=== PATIENT | female | born 1990 | race Caucasian/White ===

== ENCOUNTER 2017-04-27 06:16 | Emergency (ER) | payer OTHER ==
[~2017-04-27] VITALS: Ht 152.4 cm; Wt 69.8 kg
[~2017-04-27 06:16] MED LIST: BUTASPCAFT; CYCL10 PO; Esgic Tablet1 EACH; LORA2 PO
[2017-04-27 06:59] LABS: Source, Urine Clean Catch
[2017-04-27 07:03] LABS: Bilirubin, Urine Neg (Neg); Blood, Urine Neg (Neg); Glucose Qualitative, Urine Neg (Neg); Ketones, Urine Neg (Neg); Leukocyte Esterase, Urine Neg (Neg); Nitrite, Urine Neg (Neg); Protein, Urine Neg (Neg); Urobilinogen, Urine 1+ (Normal)
[2017-04-27 07:07] LABS: Appearance, Urine Clear (Clear); Color, Urine Yellow (P-Yellow)
[2017-04-27 07:50] LABS: Influenza A Negative (NEGATIVE); Influenza B Negative (NEGATIVE)
[2017-04-27] MEDS ORDERED: ALBU90OI INH (08:08)
== END 2017-04-27 08:23 | disposition home or self-care (01) ==
LOC: ER 06:16
PROVIDERS: Emergency Medicine
DX: J40 Bronchitis, not specified as acute or chronic (principal); F17.210 Nicotine dependence, cigarettes, uncomplicated; Z87.442 Personal history of urinary calculi
CPT/HCPCS: 71046; 81003; 81025; 87804; 99283; J1100

== ENCOUNTER 2017-05-24 19:46 | Emergency (ER) | payer OTHER ==
[~2017-05-24] VITALS: Ht 152.4 cm; Wt 69.0 kg
[~2017-05-24 19:46] MED LIST changes: +ALBU90OI INH
== END 2017-05-24 21:57 | disposition home or self-care (01) ==
LOC: ER 19:46
DX: J02.9 Acute pharyngitis, unspecified (principal); I88.9 Nonspecific lymphadenitis, unspecified; F17.210 Nicotine dependence, cigarettes, uncomplicated
CPT/HCPCS: 36415; 86308; 87081; 87430; 96372; 99283; J1100; J1885

== ENCOUNTER 2017-05-27 15:08 | Emergency (ER) | payer OTHER ==
[~2017-05-27] VITALS: Ht 152.4 cm; Wt 69.0 kg
[2017-05-27] MEDS ORDERED: GUAI600T33 PO (15:22)
[2017-05-27] MEDS ORDERED: ALKA-SELTZER P1 EA11 PO (15:23)
[2017-05-27] MEDS ORDERED: Augmentin 875-1 EACH PO (15:50)
[2017-05-27] MEDS ORDERED: Sudogest60 MG PO (15:50)
== END 2017-05-27 16:00 | disposition home or self-care (01) ==
LOC: ER 15:08
DX: J32.9 Chronic sinusitis, unspecified (principal); F17.210 Nicotine dependence, cigarettes, uncomplicated
CPT/HCPCS: 99282

== ENCOUNTER 2018-09-04 14:52 | Emergency (ER) | payer OTHER ==
[~2018-09-04] VITALS: Ht 152.4 cm; Wt 76.2 kg
[~2018-09-04 14:52] MED LIST changes: +ALKA-SELTZER P1 EA11 PO; +Augmentin 875-1 EACH PO; +GUAI600T33 PO; +Sudogest60 MG PO
[2018-09-04 16:09] LABS: Source, Urine Clean Catch
[2018-09-04 16:18] LABS: Bilirubin, Urine Neg (Neg); Blood, Urine 5+ (Neg); Glucose Qualitative, Urine Neg (Neg); Ketones, Urine Neg (Neg); Leukocyte Esterase, Urine 1+ (Neg); Nitrite, Urine Neg (Neg); Protein, Urine 2+ (Neg); Urobilinogen, Urine NORM (Normal)
[2018-09-04 16:19] LABS: BASOPHILS ABSOLUTE AUTO 0.04 K/mm3 (0.00-0.23); BASOPHILS PERCENT AUTO 1 % (0-2); EOSINOPHILS ABSOLUTE AUTO 0.32 K/mm3 (0.00-0.68); EOSINOPHILS PERCENT AUTO 4 % (0-6); Hematocrit 40.8 % (33.0-51.0); Hemoglobin 13.7 g/dL (11.5-16.0); IMMATURE GRAN ABSOLUTE AUTO 0.01 K/mm3 (0.00-0.10); IMMATURE GRAN PERCENT AUTO 0 % (0-1); LYMPHOCYTES ABSOLUTE AUTO 2.49 K/mm3 (0.84-5.20); LYMPHOCYTES PERCENT AUTO 33 % (21-46); MONOCYTES ABSOLUTE AUTO 0.46 K/mm3 (0.16-1.47); MONOCYTES PERCENT AUTO 6 % (4-13); Mean Corpuscular HGB 30.6 pg (26.0-34.0); Mean Corpuscular HGB Conc 33.6 g/dL (31.5-36.5); Mean Corpuscular Volume 91 fL (80-100); Mean Platelet Volume 8.9 fL (9.1-12.4); NEUTROPHILS ABSOLUTE AUTO 4.26 K/mm3 (1.96-9.15); NEUTROPHILS PERCENT AUTO 56 % (41-73); Platelet Count 311 K/mm3 (150-400); RDW Coefficient Variation 11.7 % (11.7-14.2); RDW Standard Deviation 39.3 fL (35.1-46.3); Red Blood Cell Count 4.47 M/mm3 (3.80-5.20); White Blood Cell Count 7.58 K/mm3 (4.00-11.30)
[2018-09-04 16:40] LABS: Appearance, Urine Hazy (Clear); Color, Urine Yellow (P-Yellow)
[2018-09-04 16:41] LABS: Red Blood Cells, Urine 50-100 /hpf (0-2); White Blood Cells, Urine 0-2 /hpf (0-5)
[2018-09-04 16:42] LABS: Bacteria Few /hpf; Calcium Oxalate Crystals Few /hpf; Hyaline Casts Rare /lpf (0-2); Mucus Light ({null, 0-Heavy}); Squamous Epithelial Cells Few /hpf (Few)
[2018-09-04 16:44] LABS: Alanine Aminotransfer (ALT/SGP 19 U/L (12-78); Albumin, Blood 4.1 g/dL (3.4-5.0); Albumin/Globulin Ratio 1.2 (0.8-1.8); Alk Phos 49 U/L (50-136); Anion Gap 6 mmol/L (6-16); Aspartate Aminotrans (AST/SGOT 13 U/L (12-37); Bilirubin, Total 0.2 mg/dL (0.1-1.0); Blood Urea Nitrogen 8 mg/dL (8-24); CO2, Blood 24 mmol/L (21-32); Calcium, Blood 8.9 mg/dL (8.5-10.1); Chloride, Blood 110 mmol/L (98-108); Creatinine, Blood 0.73 mg/dL (0.40-1.00); Globulin, Blood 3.3 g/dL (2.2-4.0); Glomerular Filtration Rate >60 (60-); Glucose, Blood 91 mg/dL (70-99); Potassium, Blood 3.6 mmol/L (3.5-5.5); Sodium, Blood 140 mmol/L (136-145); Total Protein, Blood 7.4 g/dL (6.4-8.2)
[2018-09-04] MEDS ORDERED: TOPI25 PO (17:08)
[2018-09-04] MEDS ORDERED: Phentermine HCl30 MG (17:08)
[2018-09-04] MEDS ORDERED: VENL37.5 PO (17:09)
[2018-09-04] MEDS ORDERED: Norco 5-325 Ta1 EACH PO (18:20)
[2018-09-04] MEDS ORDERED: KETO10 PO (18:20)
== END 2018-09-04 18:28 | disposition home or self-care (01) ==
LOC: ER 14:52
PROVIDERS: Physician Assistant
DX: R10.31 Right lower quadrant pain (principal); F41.9 Anxiety disorder, unspecified; G43.909 Migraine, unspecified, not intractable, without status migrainosus; F17.210 Nicotine dependence, cigarettes, uncomplicated
CPT/HCPCS: 36415; 74176; 76770; 80053; 81001; 81025; 83690; 85025; 87086; 96374; 96375; 99284-25; J1885; J2405

== ENCOUNTER 2018-12-02 19:41 | Emergency (ER) | payer OTHER ==
[~2018-12-02] VITALS: Ht 152.4 cm; Wt 73.9 kg
[~2018-12-02 19:41] MED LIST changes: +KETO10 PO; +Norco 5-325 Ta1 EACH PO; +Phentermine HCl30 MG; +TOPI25 PO; +VENL37.5 PO
[2018-12-02] MEDS ORDERED: Robaxin-750750 MG PO (20:40)
[2018-12-02] MEDS ORDERED: IBUP800 PO (20:40)
== END 2018-12-02 20:58 | disposition home or self-care (01) ==
LOC: ER 19:41
DX: S16.1XXA Strain of muscle, fascia and tendon at neck level, initial encounter (principal); V43.53XA Car driver injured in collision with pick-up truck in traffic accident, initial encounter; Z79.899 Other long term (current) drug therapy; F41.9 Anxiety disorder, unspecified; G43.909 Migraine, unspecified, not intractable, without status migrainosus; F17.210 Nicotine dependence, cigarettes, uncomplicated
CPT/HCPCS: 99283

== ENCOUNTER 2019-03-24 20:14 | Emergency (ER) | payer OTHER ==
[~2019-03-24] VITALS: Ht 152.4 cm; Wt 77.1 kg
[~2019-03-24 20:14] MED LIST changes: +IBUP800 PO; +Robaxin-750750 MG PO
[2019-03-24] MEDS ORDERED: ZOLOFT25 MG PO (20:29)
[2019-03-24] MEDS ORDERED: Adipex-P37.5 M1 PO (20:30)
[2019-03-24] MEDS ORDERED: IBU800 M1 PO (20:30)
[2019-03-24] MEDS ORDERED: Voltaren100 GM TOP (23:28)
[2019-03-24] MEDS ORDERED: CYCL10 PO (23:29)
== END 2019-03-24 23:35 | disposition home or self-care (01) ==
LOC: ER 20:14
DX: M43.6 Torticollis (principal); F17.210 Nicotine dependence, cigarettes, uncomplicated; Z79.899 Other long term (current) drug therapy; Z87.442 Personal history of urinary calculi
CPT/HCPCS: 72040; 96372; 99283-25; J1885; J7512

== ENCOUNTER 2020-05-06 15:16 | Emergency (ER) | payer OTHER ==
[~2020-05-06] VITALS: Ht 152.4 cm; Wt 79.4 kg
[~2020-05-06 15:16] MED LIST changes: +Adipex-P37.5 M1 PO; +IBU800 M1 PO; +Voltaren100 GM TOP; +ZOLOFT25 MG PO
[2020-05-06] MEDS ORDERED: HYDROCODONE-AC1 EA11 PO (15:25)
[2020-05-06] MEDS ORDERED: IBU600 M1 PO (16:50)
[2020-05-06] MEDS ORDERED: CYCL10 PO (16:50)
[2020-07-18] MEDS ORDERED: SERT100 PO (20:21)
[2020-07-18] MEDS ORDERED: ONDA4ODT MM (21:56)
[2020-07-18] MEDS ORDERED: IBUP600 PO (21:56)
== END 2020-05-06 17:10 | disposition home or self-care (01) ==
LOC: ER 15:16
DX: M62.830 Muscle spasm of back (principal); M54.6 Pain in thoracic spine; F17.210 Nicotine dependence, cigarettes, uncomplicated; Z79.899 Other long term (current) drug therapy
CPT/HCPCS: 96372; 99283-25; A9270; J1885